=== PATIENT | male | born 1945 | race Two or more races ===

== ENCOUNTER 2023-04-22 | Emergency (ER) | payer OTHER ==
[~2023-04-22] VITALS: Ht 172.7 cm; Wt 69.9 kg
[2023-04-22] MEDS ORDERED: JANUMET 50-1,01 EACH PO (00:24)
[2023-04-22] MEDS ORDERED: ATACAND4 MG PO (00:24)
[2023-04-22] MEDS ORDERED: GLIPIZIDE XL10 MG PO (00:25)
[2023-04-22] MEDS ORDERED: SPIRIVA RESPIMAT4 G1 IH (00:25)
[2023-04-22] MEDS ORDERED: SYMBICORT 16010.2 GM IH (00:25)
[2023-04-22] MEDS ORDERED: CRESTOR10 MG PO (00:26)
[2023-04-22] MEDS ORDERED: UROXATRAL10 MG PO (00:26)
[2023-04-22] MEDS ORDERED: FLONASE16 GM NASAL (00:26)
[2023-04-22] MEDS ORDERED: MAXIMUM D3325 MCG PO (00:27)
[2023-04-22 02:43] LABS: HEMATOCRIT 41.3 % (39.0-48.0); HEMOGLOBIN 13.7 g/dL (13-16.00); MEAN CELL VOLUME 86.9 fL (80.0-100.00); MEAN CORPUSCULAR HEMOGLOBIN 28.7 pg (27.00-32.0); MEAN CORPUSCULAR HGB CONC 33.1 g/dl (32.0-36.0); PLATELET COUNT 245 K/uL (150-450); RED BLOOD COUNT 4.75 M/uL (4.00-6.00); RED CELL DISTRIBUTION WIDTH 13.5 % (11.5-14.5)
[2023-04-22 02:56] LABS: BILIRUBIN TOTAL 0.6 mg/dL (0.3-1.2); BILIRUBIN,CONJUGATED 0.19 mg/dL (0.0-0.2); BILIRUBIN,UNCONJUGATED 0.41 mg/dL (0.0-0.6); CALCIUM 8.9 mg/dL (8.5-10.1); CREATININE SERUM 0.96 mg/dL (0.70-1.30); GFR 75.95; GLOBULINA 3.5 G/DL (2.4-3.5); POTASSIUM 4.11 mEq/L (3.5-5.1); TOTAL PROTEIN 7.5 gm/dL (6.4-8.2)
[2023-04-22 04:36] LABS: PH,URINE 6.5; URINE BILIRRUBIN SMALL (NEGATIVE); URINE BLOOD SMALL; URINE LEUKOCYTE NEGATIVE; URINE NITRATE NEGATIVE; URINE PROTEIN 30 (NEGATIVE); URINE UROBILINOGEN 0.2 E.U./dl
[2023-04-22 04:57] LABS: URINE APPEARANCE CLEAR; URINE BACTERIA MODERATE; URINE COLOR YELLOW; URINE EPITHELIAL CELLS 0-4 /HPF; URINE GLUCOSE >=1000 MG/DL (NEGATIVE); URINE WBC 0-2 /hpf
[2023-04-22] MEDS ORDERED: PEPCID40 MG PO (05:29)
[2023-04-22] MEDS ORDERED: LEVSIN/SL0.125 MG SL (05:29)
[2023-04-22] MEDS ORDERED: ONDANSETRON ODT4 MG PO (05:30)
== END 2023-04-22 05:43 ==
LOC: ER
PROVIDERS: General Practice
DX: R10.9 Unspecified abdominal pain (principal); E11.9 Type 2 diabetes mellitus without complications; Z79.84 Long term (current) use of oral hypoglycemic drugs; I10 Essential (primary) hypertension
CPT/HCPCS: 36415; 76700; 93005; 96365; 96366; 99284; J3490; J7030